=== PATIENT | male | born 1990 | race African-American/Black ===

== ENCOUNTER 2017-01-03 08:20 | Emergency (ER) | payer BC ==
--- NOTE | ~2017-01-03 | CT71 ---
[facility] A Service of [facility] RADIOLOGY TEXT RESULTS PATIENT: ИВАН VASQUEZ LOCATION: [facility] : 91 UNIT #: [id number] AGE: [address]: Monica Salter SEX: M ORDER DR: [id number] [facility] [address] [place], [place] [address] [id number] E MR#: [id number] Acc #: [id number] NAME: ИВАН VASQUEZ : 1990 SEX: M STUDY DATE/TIME: 01/03/2017 11:49 UNIT: [facility] ROOM: STUDY DESCRIPTION: CT Head Wo Contrast Attending Physician: Monica Salter Pa-C Ordering Physician: Monica Salter Pa-C Primary Care Physician: Audrey Primary Care Physician MEDICAL IMAGING REPORT This report is preliminary unless electronic signature is present EXAM Unenhanced head CT, 01/03/2017. HISTORY History of seizure disorder with seizure today, recent stop of medication. PROCEDURE Routine unenhanced head CT. This CT exam was performed with one or more of the following radiation dose reduction techniques: automatic exposure control, adjustment of mA and/or kV according to patient size, and iterative reconstruction. FINDINGS The brain is normal. There is no intracranial hemorrhage or mass. There is no hydrocephalus or extraaxial fluid collection. The extracranial soft tissues are normal. The skull base and calvaria are remarkable only for right maxillary sinus opacification. IMPRESSION Normal negative unenhanced head CT. There is right maxillary sinus opacification, but the exam is otherwise unremarkable. Dictated by... Dann Wu M.D. THIS IS AN ELECTRONICALLY VERIFIED REPORT Dann Wu M.D. at 01/05/2017 1:54 PM JANN/chari TD: 01/03/2017 18:07 [facility] A Service of [facility] RADIOLOGY TEXT RESULTS PATIENT: ИВАН VASQUEZ LOCATION: [facility] : 91 UNIT #: [id number] AGE: [address]: Monica Salter SEX: M ORDER DR: JOB #: [id number] MEDICAL IMAGING REPORT Page 1 of 1 COPY
--- NOTE | ~2017-01-03 | EKG ---
PATIENT: ИВАН VASQUEZ UNIT #: [id number] Ventricular Rate: 91 BPM Atrial Rate: 91 BPM P-R Interval: 156 ms QRS Duration: 88 ms Q-T Interval: 356 ms QTC Calculation(Bezet): 437 ms P [place]: 59 degrees Calculated R [place]: 73 degrees Calculated T [place]: 44 degrees Diagnosis Line: Normal sinus rhythm with sinus arrhythmia Diagnosis Line: Possible Left atrial enlargement Diagnosis Line: Borderline ECG Diagnosis Line: When compared with ECG of 08-SEP-2016 07:42, Diagnosis Line: No significant change was found Diagnosis Line: Confirmed by ALEJANDRO ROA MD ([id number]) on Diagnosis Line: 01/03/2017 2:28:15 PM INTERPRETING MD: JANINA PAK
--- NOTE | ~2017-01-03 | CR72 ---
[facility] A Service of [facility] & [facility] RADIOLOGY TEXT RESULTS PATIENT: ИВАН VASQUEZ LOCATION: [facility] : 91 UNIT #: [id number] AGE: [address]: Monica Salter SEX: M ORDER DR: [id number] [facility] [address] [place], [place] [address] [id number] E MR#: [id number] Acc #: [id number] NAME: ИВАН VASQUEZ : 1990 SEX: M STUDY DATE/TIME: 01/03/2017 11:10 UNIT: [facility] ROOM: STUDY DESCRIPTION: CR Chest Single View Portable Attending Physician: Monica Salter Pa-C Ordering Physician: Monica Salter Pa-C Primary Care Physician: Audrey Primary Care Physician MEDICAL IMAGING REPORT This report is preliminary unless electronic signature is present EXAM Chest portable 01/03 INDICATIONS Seizure, shortness of air today. COMPARISON 08/17/2016 FINDINGS A single AP portable view of the chest shows both lungs to be clear. The heart is normal in size. The mediastinal contour is normal. No significant bone abnormalities are seen. IMPRESSION Normal portable chest. Dictated by... Сергей Emerson Jr., M.D. THIS IS AN ELECTRONICALLY VERIFIED REPORT Сергей Emerson Jr., M.D. at 01/03/2017 6:58 PM VU/clarence TD: 01/03/2017 16:27 JOB #: [id number] MEDICAL IMAGING REPORT Page 1 of 1 COPY
[~2017-01-03 08:20] MED LIST: CLARITIN10 M2 PO; KEPPRA500 M2 PO
[2017-01-03 08:30] LABS: POC - CKMB 1.9 ng/mL (0.0-7.9); POC - TROPONIN <0.05 ng/mL (<=0.05)
[2017-01-03 09:31] LABS: BASOPHIL# 0.1 X10e3 (0-0.3); BASOPHIL% 0.5 % (0-2.5); EOSINOPHIL# 0.4 X10e3 (0-0.7); EOSINOPHIL% 1.5 % (0.0-7.0); HEMATOCRIT 50.1 % (38.0-50.0); HEMOGLOBIN 16.2 gm/dL (13.0-16.0); LYMPHOCYTE# 6.9 X10e3 (1.0-3.5); LYMPHOCYTE% 26.2 % (17.0-45.0); MEAN CELL VOLUME 87.6 FL (83-96); MEAN CORPUSCULAR HEMOGLOBIN 28.4 PG (28-34); MEAN CORPUSCULAR HGB CONC 32.4 g/dL (30-36); MEAN PLATELET VOLUME 8.7 FL (6.5-11.5); MONOCYTE# 2.4 X10e3 (0-1.0); MONOCYTE% 9.1 % (3.0-12.0); NEUTROPHIL# 16.6 X10e3 (1.5-7.1); NEUTROPHIL% 62.7 % (40-75); PLATELET COUNT 280 X10e3 (140-420); RED BLOOD COUNT 5.72 X10e (3.90-5.60); WHITE BLOOD COUNT 26.4 X10e3 (4.0-10.5)
[2017-01-03 09:34] LABS: DIFF IND YES
[2017-01-03 09:58] LABS: ALBUMIN SERUM 5.2 g/dL (3.5-5.0); ALKALINE PHOSPHATASE 68 U/L (32-92); ALT (SGPT) 36 U/L (10-40); ANISOCYTOSIS SL; AST (SGOT) 49 U/L (10-42); BILIRUBIN,TOTAL 0.7 mg/dL (0.2-2.0); BLOOD UREA NITROGEN 19 mg/dL (9-23); BUN/CREATININE RATIO 11.17; CALCIUM SERUM 9.7 mg/dL (8.4-10.2); CHLORIDE 105 mmol/L (100-111); CREATININE SERUM 1.7 mg/dL (0.6-1.4); GLOM FILT RATE Estimated ABOVE60 mL/min (>60); GLUCOSE FASTING 163 mg/dL (70-110); NUCLEATED RED BLOOD CELL 1 /100 (0); PLATELET ESTIMATE NORMAL (NORMAL); POTASSIUM 3.2 mmol/L (3.5-5.1); PROTEIN TOTAL SERUM 9.4 g/dL (6.0-8.3); SODIUM 141 mmol/L (135-145)
[2017-01-03 09:59] LABS: CARBON DIOXIDE 9 mmol/L (22-31)
[2017-01-03 10:55] LABS: INFLUENZA A NEG (NEG); INFLUENZA B NEG (NEG)
[2017-01-03 11:47] LABS: URINE SOURCE CLEAN CATCH
[2017-01-03 11:56] LABS: URINE APPEARANCE CLEAR; URINE BILIRUBIN NEG (NEG); URINE BLOOD 2+ (NEG); URINE COLOR YELLOW; URINE GLUCOSE NEG (NEG); URINE KETONE NEG (NEG); URINE LEUKOCYTE ESTERASE NEG (NEG); URINE NITRATE NEG (NEG); URINE PROTEIN TRACE (NEG); URINE SPECIFIC GRAVITY 1.008 (1.003-1.035); URINE UROBILINOGEN 0.2 MG/DL (NEG)
[2017-01-03 11:58] LABS: URINE BACTERIA AUWI NEG (NEGATIVE); URINE SQUAMOUS EPITHELIAL CELL NONE SEEN /[HPF]; UWBCS1 AUWI 0-2 (0-5)
[2017-01-03 12:07] LABS: AMPHETAMINE NEG (NEG); BARBITURATES NEG (NEG); BENZODIAZEPINES NEG (NEG); COCAINE NEG (NEG); MARIJUANA NEG (NEG); OPIATES NEG (NEG); TRICYCLIC ANTIDEPRESSANTS NEG (NEG); U METHADONE NEG (NEG)
[2017-01-03 12:08] LABS: CULTURE INDICATED? NO
[2017-01-03 15:13] LABS: GLUCOSE-CSF 85 mg/dL (50-80); PROTEIN-CSF 21 mg/dL (15-45)
[2017-01-03 16:10] LABS: CSF TUBE NUMBER 4
[2017-01-03 16:11] LABS: CSF APPEARANCE CLEAR (CLEAR); CSF LYMPHOCYTE 0 %; CSF MONOCYTE 0 %; CSF NEUTROPHIL 0 %; CSF RBC 14 CMM (0); CSF WBC 0 CMM (0-8); CSF XANTHACHROMIC NO
[2017-01-03 16:14] LABS: CSF APPEARANCE CLEAR (CLEAR); CSF LYMPHOCYTE 0 %; CSF MONOCYTE 0 %; CSF NEUTROPHIL 0 %; CSF RBC 200 CMM (0); CSF TUBE NUMBER 1; CSF WBC 0 CMM (0-8); CSF XANTHACHROMIC NO
== END 2017-01-03 17:50 | disposition home or self-care (01) ==
LOC: CED 08:20
PROVIDERS: Emergency Medicine; Physician Assistant Medical
DX: G40.909 Epilepsy, unspecified, not intractable, without status epilepticus (principal); R50.9 Fever, unspecified; Z79.899 Other long term (current) drug therapy
CPT/HCPCS: 36415; 62270; 70450; 71010; 80053; 80307; 81003; 82553; 82945; 84157; 84484; 85025; 87040; 87070; 87102; 87205; 87206; 87498; 87651; 87804; 89051; 93005; 96361; 96365; 96375; 99284; J0696; J1953; J2060

== ENCOUNTER 2017-03-02 02:59 | Emergency (ER) | payer BC ==
--- NOTE | ~2017-03-02 | EKG ---
PATIENT: ИВАН VASQUEZ UNIT #: [id number] Ventricular Rate: 88 BPM Atrial Rate: 88 BPM P-R Interval: 158 ms QRS Duration: 76 ms Q-T Interval: 328 ms QTC Calculation(Bezet): 396 ms P [place]: 78 degrees Calculated R [place]: 82 degrees Calculated T [place]: 64 degrees Diagnosis Line: Normal sinus rhythm Diagnosis Line: Biatrial enlargement Diagnosis Line: Possible Acute pericarditis Diagnosis Line: Abnormal ECG Diagnosis Line: No previous ECGs available Diagnosis Line: Confirmed by EVARISTO HUNT MD ([id number]) on 03/02/2017 Diagnosis Line: 10:44:03 AM INTERPRETING MD: GILBERT PAK
--- NOTE | ~2017-03-02 | CR63 ---
[facility] A Service of [facility] & [facility] RADIOLOGY TEXT RESULTS PATIENT: ИВАН VASQUEZ LOCATION: [facility] : 91 UNIT #: [id number] AGE: [address]: Souleymane Lofton MD SEX: M ORDER DR: [id number] [facility] [address] [place], [place] [address] [id number] E MR#: [id number] Acc #: [id number] NAME: ИВАН VASQUEZ : 1990 SEX: M STUDY DATE/TIME: 03/02/2017 6:32 UNIT: [facility] ROOM: STUDY DESCRIPTION: CR Chest 2 View Attending Physician: Souleymane Lofton M.D. Ordering Physician: Souleymane Lofton M.D. Primary Care Physician: Primary Care Physician No MEDICAL IMAGING REPORT This report is preliminary unless electronic signature is present EXAM Chest x-ray 03/02/2017 HISTORY 26-year-old male in the ED complaining of shortness of air and cough beginning last evening. TECHNIQUE AP and lateral upright chest series. FINDINGS Shallow lung expansion. The lungs appear clear. No visible pulmonary infiltrate, pneumothorax or pleural effusion. Heart size and pulmonary vascularity are within normal limits. No change since 01/03/2017. IMPRESSION No active disease. No change since 01/03/2017. Dictated by... Lee Kern M.D. THIS IS AN ELECTRONICALLY VERIFIED REPORT Lee Kern M.D. at 03/02/2017 11:13 AM CURTIS/zackery TD: 03/02/2017 07:32 JOB #: [id number] MEDICAL IMAGING REPORT Page 1 of 1 COPY
== END 2017-03-02 07:59 | disposition home or self-care (01) ==
LOC: CED 02:59
DX: J20.9 Acute bronchitis, unspecified (principal)
CPT/HCPCS: 71020; 93005; 94640; 99283